=== PATIENT | female | born 1955 | race Caucasian/White ===

== ENCOUNTER → 2018-01-03 | Outpatient (CLI) | payer OTHER ==
[~2018-01-03] MED LIST: CITALOPRAM HBR10 MG PO; MELOXICAM15 MG PO; OXYCONTIN30 MG PO; PERCOCET 10/1 TABLET PO; PRISTIQ100 MG PO; TRAZODONE HCL50 MG PO
== END | disposition home or self-care (01) ==
LOC: RAD 13:46
PROC: 3E0R3KZ Introduction of Other Diagnostic Substance into Spinal Canal, Percutaneous Approach (ICD-10-PCS; principal; 2018-01-03)
DX: M47.894 Other spondylosis, thoracic region (principal); M48.03 Spinal stenosis, cervicothoracic region; M51.25 Other intervertebral disc displacement, thoracolumbar region; M25.78 Osteophyte, vertebrae; Z96.89 Presence of other specified functional implants; G89.29 Other chronic pain
CPT/HCPCS: 62303; 72129